=== PATIENT | female | born 1995 | race African-American/Black ===

== ENCOUNTER 2020-07-04 05:24 | Emergency (ER) | payer OTHER ==
[~2020-07-04] VITALS: Ht 170.2 cm; Wt 59.0 kg
[2020-07-04] MEDS ORDERED: ZOFRAN (05:38)
[2020-07-04] MEDS ORDERED: OMEPRAZOLE20 MG (05:38)
== END 2020-07-04 13:40 | disposition home or self-care (01) ==
LOC: ER 05:24
DX: K31.84 Gastroparesis (principal); K29.00 Acute gastritis without bleeding; U07.1 COVID-19